=== PATIENT | male | born 1990 | race Caucasian/White ===

== ENCOUNTER 2016-11-11 14:24 | Inpatient (IN) | payer BC ==
[2016-11-11 15:01] LABS: % IMMATURE GRANULYOCYTES 0.2 % (0.0-1.1); ABSOLUTE IMMATURE GRANULOCYTES 0.01 10^3/uL (0.00-0.10); ADD DIFF? NO; ADD MORPH? NO; ADD SCAN? NO; ATYPICAL LYMPHOCYTE FLAG 0 (0-99); FRAGMENT RBC FLAG 0 (0-99); HEMATOCRIT 44.7 % (40.0-51.0); HEMOGLOBIN 15.8 g/dL (13.7-17.5); LEFT SHIFT FLG 0 (0-99); LIPEMIA HEMOLYSIS FLAG 90 (0-99); MEAN CELL HEMOGLOBIN 33.7 pg (27.9-34.1); MEAN CELL HEMOGLOBIN CONCENTR. 35.3 g/dL (32.4-36.7); MEAN CELL VOLUME 95.3 fL (81.5-99.8); MEAN PLATELET VOLUME 10.4 fL (8.7-11.7); PLATELET CLUMPS FLAG 0 (0-99); PLATELET COUNT 202 10^3/uL (150-400); RED BLOOD CELL COUNT 4.69 10^6/uL (4.40-6.38); RED CELL DISTRIBUTION WIDTH 12.2 % (11.5-15.2)
--- NOTE | 2016-11-11 15:11 | EDPHY ---
Mental Health General Previous Psychiatric History: substance abuse, depression Smoking Status: Current some day smoker Time Patient Placed on Detainer: 15:05 Time Medically Cleared for Psychiatric Evaluation: 15:49 Time of Transfer of Care: 17:[address]:: Aracelis Course: patient remained stable over course of my shift <Ebony Smith - Last Filed: 11/11/16 17:02> <Briana Hsu - Last Filed: 11/12/16 00:15> Course: patient remained stable over course of my shift, awaiting transfer to inpatient facility (The patient has been accepted at [address] [place] [address] Blackwood and will be transferred there this morning.) <Chani Horvath - Last Filed: 11/12/16 06:51> Narrative: CHIEF COMPLAINT: suicidal ideation HISTORY OF PRESENT ILLNESS: 26-year-old male presents emergency department voluntarily for suicidal ideation. Patient reports history of depression and substance abuse. He states that he has been very depressed since his father a few years ago. He has been to rehab a few times. Patient states he is staying at the [facility] right now. Patient reports suicidal thoughts over the last 5 days with plans to overdose or jump in front of a bus. Patient states Tuesday evening which is 4 days ago he took several Klonopin in hopes to not wake up. Patient denies previous suicide attempt. He denies drug or alcohol use. Patient denies homicidal ideation, auditory or visual hallucinations. REVIEW OF SYSTEMS: A comprehensive 10 point review of systems is otherwise negative aside from elements mentioned in the history of present illness. Physical Exam Gen: Alert and Oriented, NAD HEENT: PERRL, moist mucous membranes NECK: no meningismus CV: regular rate and regular rhythm PULM: CTAB, no wheezes ABDOMEN: soft, non tender to palpation, BS present BACK: No CVA tenderness NEURO: Neurologically grossly intact EXTREMITIES: normal appearing SKIN: no rash or break in skin on exposed skin PSYCH: Flat affect, reports suicidal ideation, denies homicidal ideation, auditory or visual hallucinations. (Ebony Smith) I assumed care of this patient at 9:00 p.m.. He has been cooperative while under my care. His evening medications have been ordered. He has undergone a psychiatric evaluation and inpatient psychiatric placement is being sought. His care is transferred to Dr. Horvath at midnight. (Briana Hsu) Medical Decision Makin-patient medically cleared and awaiting mental health evaluation. Report passed on to Dr. Hsu at the end of my shift pending evaluation. (Ebony Smith) - Objective Vital Signs: Initial Vital Signs Temperature (C) 36.9 C 11/11/16 14:28 Heart Rate 69 11/11/16 14:28 Respiratory Rate 14 11/11/16 14:28 Blood Pressure 130/75 H 11/11/16 14:28 O2 Sat (%) 99 11/11/16 14:28 O2 Delivery Mode Room Air Allergies/Adverse Reactions: No Known Allergies Allergy (Verified 11/11/16 14:28) Home Medications: Medication Instructions Recorded Clonidine 09/06/16 GABAPENTIN 09/06/16 LaMICtal 09/06/16 Remeron 09/06/16 Hydrocodone/APAP 5/325 [Kewadin 1 - 2 each PO Q4 PRN #14 tab 09/13/16 5/325] Medications Given: Discontinued Medications Gabapentin (Neurontin) 1,200 mg PO EDNOW ONE Stop: 11/11/16 23:40 Last Admin: 11/11/16 23:50 Dose: 1,200 mg Lamotrigine (Lamictal) 400 mg PO EDNOW ONE Stop: 11/11/16 23:43 Last Admin: 11/12/16 00:36 Dose: 400 mg Mirtazapine (Remeron) 30 mg PO EDNOW ONE Stop: 11/11/16 23:43 Last Admin: 11/12/16 00:36 Dose: 30 mg Nicotine Polacrilex (Nicorette) 2 mg B ONCE ONE Stop: 11/11/16 18:02 Last Admin: 11/11/16 18:22 Dose: 2 mg Quetiapine Fumarate (Seroquel) 50 mg PO ONCE ONE Stop: 11/11/16 23:45 Last Admin: 11/12/16 00:36 Dose: 50 mg Laboratory Results: Laboratory Results 11/11/16 14:14 11/11/16 14:14 Departure <Ebony Smith - Last Filed: 11/11/16 17:02> <Briana Hsu - Last Filed: 11/12/16 00:15> <Chani Horvath - Last Filed: 11/12/16 06:51> - Departure Clinical Impression: Severe major depression Condition: Fair Referrals: NONE *PRIMARY CARE P,. [Primary Care Provider] - As per Instructions
[2016-11-11 15:16] LABS: ANION GAP 13 mEq/L (8-16); CALCIUM 9.5 mg/dL (8.5-10.4); CARBON DIOXIDE 28 mEq/l (22-31); CHLORIDE 106 mEq/L (97-110); CREATININE 0.8 mg/dL (0.7-1.3); ETHANOL SERUM < 10 mg/dL (0-10); GLOMERULAR FILTRATION RATE > 60; GLUCOSE 103 mg/dL (70-100); POTASSIUM 3.7 mEq/L (3.5-5.2); SALICYLATE < 1.0 mg/dL (2.0-20.0); SODIUM 147 mEq/L (134-144)
[2016-11-11] MEDS ORDERED: NICOTINE POLACRILEX 2 MG GUM B ONE (18:01)
[2016-11-11] MEDS ORDERED: GABAPENTIN 300 MG CAP PO ONE (23:39)
[2016-11-11] MEDS ORDERED: lamoTRIgine 100 MG TAB PO ONE (23:42)
[2016-11-11] MEDS ORDERED: MIRTAZAPINE 30 MG TAB PO ONE (23:42)
[2016-11-11] MEDS ORDERED: QUEtiapine FUMARATE 50 MG TAB PO ONE (23:44)
[2016-11-12] MEDS ORDERED: QUEtiapine FUMARATE 50 MG TAB PO ONE (07:38)
[2016-11-12] MEDS ORDERED: GABAPENTIN 400 MG CAP PO ONE (07:38)
[2016-11-12] MEDS ORDERED: GABAPENTIN 300 MG CAP PO ONE (13:03)
[2016-11-12] MEDS ORDERED: MAGNESIUM HYDROXIDE 30 ML UDCUP PO PRN (17:02)
[2016-11-12] MEDS ORDERED: LORazepam 0.5 MG TAB PO PRN (17:02)
[2016-11-12] MEDS ORDERED: ACETAMINOPHEN 325 MG TAB PO PRN (17:02)
[2016-11-12] MEDS ORDERED: MAG HYDROX/AL HYDROX/SIMETH 30 ML UDCUP PO PRN (17:03)
[2016-11-12] MEDS: NICOTINE POLACRILEX 2 MG GUM B PRN (17:54)
[2016-11-12] MEDS: hydrOXYzine HCL 25 MG TAB PO PRN ×2 (19:03→22:06)
[2016-11-12] MEDS: GABAPENTIN 400 MG CAP PO SCH (22:07)
[2016-11-12] MEDS: QUEtiapine FUMARATE 50 MG TAB PO SCH (22:07)
--- NOTE | 2016-11-13 07:26 | PDGENHP ---
History and Physical - History of Present Illness 26 yo male with h/o bipolar disorder admitted from ED with suiciality. He has h /o depression and has been more depressed since his father a few years ago. He moved here from [place] and has been staying at a sober living facility, but considers himself homeless at this time. He gives a h/o PUD and take Prilosec daily. He does endorse some epigastric discomfort, no N/V/D. No fevers/chills. No CP or SOB. He reported suicidal thoughts to ED and took several Klonopin the other night hoping he wouldn't wake up. He is admitted to behavioral health for psychiatric stabilization. He feels safe here. History Information - Allergies/Home Medication List Allergies/Adverse Reactions: No Known Allergies Allergy (Verified 11/11/16 14:28) Home Medications: Clonidine 09/06/16 [Last Taken Unknown] GABAPENTIN 09/06/16 [Last Taken Unknown] LaMICtal 09/06/16 [Last Taken Unknown] Remeron 09/06/16 [Last Taken Unknown] I have personally reviewed and updated: family history, medical history, social history, surgical history - Past Medical History GERD - Surgical History Reports: no pertinent surgical hx - Family History Additional family history: mom had bipolar - Social History Smoking Status: Light smoker Drug Use: Marijuana Review of Systems ROS: 10pt was reviewed & negative except for what was stated in HPI & below Physical Exam Temp Pulse Resp BP Pulse Ox 36.7 C 55 L 14 114/71 96 11/13/16 06:00 11/13/16 06:00 11/13/16 06:00 11/13/16 06:00 11/13/16 06:00 Constitutional: no apparent distress Eyes: PERRL Ears, Nose, Mouth, Throat: moist mucous membranes Cardiovascular: regular rate and rhythym Respiratory: no respiratory distress, clear to auscultation Gastrointestinal: normoactive bowel sounds, soft, non-tender abdomen Skin: warm Neurologic: AAOx3 Psychiatric: interacting appropriately Lab Data & Imaging Review 11/11/16 14:14 11/11/16 14:14 WBC 5.24 10^3/uL (3.80-9.50) 11/11/16 14:14 RBC 4.69 10^6/uL (4.40-6.38) 11/11/16 14:14 Hgb 15.8 g/dL (13.7-17.5) 11/11/16 14:14 Hct 44.7 % (40.0-51.0) 11/11/16 14:14 MCV 95.3 fL (81.5-99.8) 11/11/16 14:14 MCH 33.7 pg (27.9-34.1) 11/11/16 14:14 MCHC 35.3 g/dL (32.4-36.7) 11/11/16 14:14 RDW 12.2 % (11.5-15.2) 11/11/16 14:14 Plt Count 202 10^3/uL (150-400) 11/11/16 14:14 MPV 10.4 fL (8.7-11.7) 11/11/16 14:14 Neut % (Auto) 71.5 % (39.3-74.2) 11/11/16 14:14 Lymph % (Auto) 19.3 % (15.0-45.0) 11/11/16 14:14 Lander % (Auto) 7.8 % (4.5-13.0) 11/11/16 14:14 Eos % (Auto) 0.4 % (0.6-7.6) L 11/11/16 14:14 Baso % (Auto) 0.8 % (0.3-1.7) 11/11/16 14:14 Nucleat RBC Rel Count 0.0 % (0.0-0.2) 11/11/16 14:14 Absolute Neuts (auto) 3.75 10^3/uL (1.70-6.50) 11/11/16 14:14 Absolute Lymphs (auto) 1.01 10^3/uL (1.00-3.00) 11/11/16 14:14 Absolute Monos (auto) 0.41 10^3/uL (0.30-0.80) 11/11/16 14:14 Absolute Eos (auto) 0.02 10^3/uL (0.03-0.40) L 11/11/16 14:14 Absolute Basos (auto) 0.04 10^3/uL (0.02-0.10) 11/11/16 14:14 Absolute Nucleated RBC 0.00 10^3/uL (0-0.01) 11/11/16 14:14 Immature Gran % 0.2 % (0.0-1.1) 11/11/16 14:14 Immature Gran # 0.01 10^3/uL (0.00-0.10) 11/11/16 14:14 Sodium 147 mEq/L (134-144) H 11/11/16 14:14 Potassium 3.7 mEq/L (3.5-5.2) 11/11/16 14:14 Chloride 106 mEq/L (97-110) 11/11/16 14:14 Carbon Dioxide 28 mEq/l (22-31) 11/11/16 14:14 Anion Gap 13 mEq/L (8-16) 11/11/16 14:14 BUN 10 mg/dL (7-23) 11/11/16 14:14 Creatinine 0.8 mg/dL (0.7-1.3) 11/11/16 14:14 Estimated GFR > 60 11/11/16 14:14 Glucose 103 mg/dL (70-100) H 11/11/16 14:14 Calcium 9.5 mg/dL (8.5-10.4) 11/11/16 14:14 Salicylates < 1.0 mg/dL (2.0-20.0) L 11/11/16 14:14 Urine Opiates Screen NEGATIVE (NEGATIVE) 11/11/16 15:15 Acetaminophen < 10 mcg/mL (10.0-30.0) L 11/11/16 14:14 Urine Barbiturates NEGATIVE (NEGATIVE) 11/11/16 15:15 Ur Phencyclidine Scrn NEGATIVE (NEGATIVE) 11/11/16 15:15 Ur Amphetamine Screen NEGATIVE (NEGATIVE) 11/11/16 15:15 U Benzodiazepines Scrn NEGATIVE (NEGATIVE) 11/11/16 15:15 Urine Cocaine Screen NEGATIVE (NEGATIVE) 11/11/16 15:15 U Marijuana (THC) Screen NON-NEGATIVE (NEGATIVE) H 11/11/16 15:15 Ethyl Alcohol < 10 mg/dL (0-10) 11/11/16 14:14 Assessment & Plan Assessment: Severe major depression (Acute) vs Bipolar disorder Substance abuse Peptic ulcer Pt continues to reports suicidal thoughts, med management per psych. UDS positive for marijuana, o/w negative. Will add Protonix for his PUD, he usually takes Prilosec.
[2016-11-13] MEDS: QUEtiapine FUMARATE 50 MG TAB PO SCH ×2 (08:50→21:35)
[2016-11-13] MEDS: PANTOPRAZOLE SODIUM 40 MG TAB PO SCH (08:51)
[2016-11-13] MEDS: GABAPENTIN 400 MG CAP PO SCH ×3 (08:51→21:35)
[2016-11-13] MEDS: MIRTAZAPINE 15 MG TAB PO SCH (08:51)
[2016-11-13] MEDS: NICOTINE POLACRILEX 2 MG GUM B PRN ×4 (08:51→19:20)
[2016-11-13] MEDS: lamoTRIgine 100 MG TAB PO SCH (08:52)
[2016-11-13] MEDS: hydrOXYzine HCL 25 MG TAB PO PRN (21:35)
[2016-11-14 06:45] VITALS: RESP 12
[2016-11-14] MEDS: QUEtiapine FUMARATE 50 MG TAB PO SCH (07:44)
[2016-11-14] MEDS: PANTOPRAZOLE SODIUM 40 MG TAB PO SCH (07:44)
[2016-11-14] MEDS: GABAPENTIN 400 MG CAP PO SCH ×3 (07:45→21:20)
[2016-11-14] MEDS: MIRTAZAPINE 15 MG TAB PO SCH (07:45)
[2016-11-14] MEDS: lamoTRIgine 100 MG TAB PO SCH (07:45)
[2016-11-14] MEDS: NICOTINE POLACRILEX 2 MG GUM B PRN ×3 (07:46→17:58)
--- NOTE | 2016-11-14 12:35 | SOAPPROG ---
SOAP Progress Note Assessment/Plan: Assessment: 26 yo CM presented vol to ED c/o SI and recent OD on Rx klonopin and ambien with THC use over 2 day period (which he filled from refills avail from psychiatrist in [place]) last week after leaving [facility]. States he'd been depressed for 2yr after father of brain tumor, long hx of subst use but has been in/out of diff rehab facilities in different states over past 6 mo. Unemployed and supported entirely financially by his mother, seems family may be setting limits on him. Denied hx of suicide attempts until presently. Does not want to return to rehab b/c feels it is not conducive for mental health treatment. Reports acute SI last week related to conflict with family. Told ED he continues with SI and thoughts to overdose or jump in front of a bus. Denied psychotic sxs, no AH/VH. denied any HI. Was placed on M-1. Plan: admitted to [facility]. restarted on outpt meds. safety precautions. dictated admission note to follow. Objective: Vital Signs Temp Pulse Resp BP Pulse Ox 36.9 C 80 12 117/57 L 97 11/14/16 06:00 11/14/16 06:00 11/14/16 06:00 11/14/16 06:00 11/14/16 06:00 - Time Spent With Patient Time Spent With Patient: 75min - Pending Discharge Pending Discharge Within 24 Hours: No Pending Discharge Within 48 Hours: No ICD10 Worksheet Patient Problems: Problems Problem Status Diagnosed Severe major depression Acute
--- NOTE | 2016-11-14 12:36 | SOAPPROG ---
SOAP Progress Note Assessment/Plan: Assessment: 26 yo CM presented vol to ED c/o SI and recent OD on Rx klonopin and ambien with THC use over 2 day period (which he filled from refills avail from psychiatrist in [place]) last week after leaving [facility]. States he'd been depressed for 2yr after father of brain tumor, long hx of subst use but has been in/out of diff rehab facilities in different states over past 6 mo. Unemployed and supported entirely financially by his mother, seems family may be setting limits on him. Denied hx of suicide attempts until presently. Does not want to return to rehab b/c feels it is not conducive for mental health treatment. Reports acute SI last week related to conflict with family. Told ED he continues with SI and thoughts to overdose or jump in front of a bus. Denied psychotic sxs, no AH/VH. denied any HI. Was placed on M-1. 11/14/16 11:43 pt reports not having slept well last night. feels groups are "mundane" here. trying to contact family or friends for $ today. Got into argument with a sister , and generally doesn't get along with her or 2 of 3 siblings, but only calls her for $. 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 Hasn' t worked there before b/c "didn't want to" at the time. Now feels he needs to focus on achieving financial independence from family, as he feels manipulated by mother/sibs who apparently threaten removal of $ support if not in drug treatment. Expressed frustration that his "drunk brother" (recovering EtOH) is allowed to stay at his mother's house "but I get sent away". [facility] mother promised to call him this AM but hasn't, and isn't happy about this. "she was going to help me" with next step "after I made it clear I was NOT going to return to [facility]" facility, c/o of this not being helpful for addressing his mental health issues/depression, "many there are out of intermediate ", and facility not very nice. Reluctant to sign DAVID's for mother or other family, but eventually agreed with stipulation to not discuss his care but only as related to d/c planning. States he also has option to live with sister Jenae in but doesn't want mother to know she offered. Sis can't afford to buy him ticket to return, and mother "closed down my account". Does not want to stay in [place] for treatment, wants to return to and f/u with his outpt psychiatrist there. calm, cooperative, good eye contact, casually dressed, restricted affect, mood "not great", denied any AH/VH or other psychotic sxs. Denied any SI or HI. externalizing, poor insight into his subst use. expresses future-oriented thinking. states likes Lamictal in AM b/c feels "more focused", also would like to take Remeron in AM reports had genetic testing in another rehab, and found SSRIs not beneficial psychological testing indicated anxiety d/o which could seem like bipolar 2, and question ADHD per pt. PLAN: -cont current meds Lamictal 400mg, Gabap 1200mg tid, remeron 30mg -made phone call to [facility] locally- Verified pt filled 2 Rx on 11/08, klon and ambien. Still with 4 refills remaining on Klonopin 0.5mg qd, and Ambien 10mg # [address] Licona. DISCONTINUED refills as these are not part of current tx regimen, recent reported OD on these, and not indicated given his subst use hx. *PT HAS refills of Lamictal, Remeron and Gabapentin on hold at [facility] from Dr. Licona. Will not need at d/c. Also has Rx for Clonidine 0.1mg bid prn from a different prescriber avail for refill at [facility]. Did not d/c this, as pt does request restarting it while inpt here. could be option if indicated. -new here since admit- seroquel 50mg bid. will change to 100mg qhs. may reconsider continuation of this med in this pt with subst use, however does have clinical indication for bmd depr, although subst use and personality d/o seem also contributing -signed in Voluntary Objective: Vital Signs Temp Pulse Resp BP Pulse Ox 36.9 C 80 12 117/57 L 97 11/14/16 06:00 11/14/16 06:00 11/14/16 06:00 11/14/16 06:00 11/14/16 06:00 - Time Spent With Patient Time Spent With Patient: 25min - Pending Discharge Pending Discharge Within 24 Hours: No Pending Discharge Within 48 Hours: No ICD10 Worksheet Patient Problems: Problems Problem Status Diagnosed Severe major depression Acute
[2016-11-14] MEDS: hydrOXYzine HCL 25 MG TAB PO PRN ×3 (12:56→22:14)
[2016-11-14] MEDS: QUEtiapine FUMARATE 100 MG TAB PO SCH (19:29)
--- NOTE | 2016-11-15 03:48 | BAPA ---
[f rep st] ADMISSION PSYCHIATRIC ASSESSMENT DATE OF SERVICE: 11/13/2016 CHIEF COMPLAINT: "I [facility] a week and a half but got real depressed on M onday, packed up and left, got my Klonopin and Ambien refilled and took them" in a reported suicide a ttempt. HISTORY OF PRESENT ILLNESS: The patient is a 26-year-old unmarried male, who presented vol untarily to [facility] ED endorsing suicidal ideation with a plan to overdose or jump i n front of traffic. Patient stated he had recently taken several Klonopin in an attempt to kill hims elf, also Ambien. He reports feeling depressed for approximately 2 years since his father of a glioblastoma. The patient reported after leaving the [facility], he filled his prescripti ons for Klonopin and Ambien (which were prescribed by a psychiatrist from [place]), went to a hot el he found through [employer] and took 7 to 8 Klonopin. He reports taking some Ambien prior to this to "prepare for taking the Klonopin," awakened the next day, and took some more pills. He did admit that someone asked to buy his pills from him which he refused to sell. At some point, he also reported f lushing 4-5 pills down the toilet. He does not have much recall of these 1-2 days earlier this week. He did wake up Tuesday (11/10/2016). Apparently he had torn apart a bed frame in his altered ment al status and owes money to this [employer] where he stayed. "I don't think they will give me a good revi ew." After this event, he returned to [facility], told them what he did and states they took him t o the hospital for an evaluation. He also then called his mother. Patient reports no prior suicide attempt. He continues to endorse depressed mood approximately 6.5/10. 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 Appetite is good. Energy "up and down." Suicidal ideation did not occur un til recent past, relating stressor that his mother was not talking to him, 2 siblings also were not s peaking to him and the patient was upset about some recent family arguments. He reports that mother spent 1 month in [place] recently and paid for him to be in a treatment facility, at some point, lissy hassan texted her, saw that she read his text but did not respond to several of them. This also upset him , and resulted in him having suicidal ideation with recent attempt. The patient denied any psychotic symptoms. He denied current manic or hypomanic symptoms. However, states he was diagnosed with bipo lar type 2 at a rehabilitation facility recently. PAST PSYCHIATRIC HISTORY: No previous inpatient psychiatric treatment for rehabilitation/dual diagno sis programs since February 2016. He has been at [facility] in [place] for 5 weeks, then [facility] in [place], [place] for their 30 day program, more recently at [facility] in January and Apr, and a program called [facility] in [place], [place] in July 2016. He has been at [facility] for approximately 2 weeks. He does not want to return there, feeling this facility is not co nducive for mental health stability. Current psychiatrist is Dr. Scott Gore. Psychiatrist in [facility], Dr. Abel Licona. CURRENT PSYCHIATRIC MEDICATIONS: Lamictal 400 mg p.o. daily. Remeron 30 mg p.o. daily. Gabapentin 1200 mg p.o. three times daily. Seroquel 50 mg p.o. twice daily. PAST PSYCHIATRIC MEDICATIONS: The patient lists several including Lexapro, Klonopin, Risperdal, Lyri ca, also Xanax. Reports history of Concerta in 4th grade. He also has been on propranolol, clonidin e and hydroxyzine. SAFETY HISTORY: No previous suicide attempts until recently as noted in HPI. This was his 1st repor elba suicide attempt. No reported history of harm to others. ALLERGIES: No known drug allergies. SUBSTANCE USE HISTORY: He reports recent sobriety for 44 days until 11/08/2016 when he [facility] and relapsed on marijuana, also this same day he overdosed on some of his benzodiazepines. He r eports drug of choice was primarily marijuana, 1st use at age 19 and historically had used in spurts but over the past 2 years has used almost daily. He endorsed using Dabs in May. History of LSD, MDMA and mushroom use, last used MDMA 9 months ago, used LSD only once he reports. He was prescribed Concerta in 4th grade until 10th grade, then Adderall which he took from friends in college whenever he needed to write a paper. He denied any narcotic/pain medication use. Denied any IV drug use. A dmits benzo use usually as prescribed although has received Xanax from friends before. He used to dr ink in college but stopped at age 24. Urine drug screen positive for THC; otherwise negative. BAL w as 0 in the ED. He reports longus sobriety was approximately 45 days ending 11/08/2016. FAMILY PSYCHIATRIC/SUBSTANCE USE HISTORY: The patient reports mother has bipolar but was not aware o f any other family substance use history. 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 To [facility] staff he reports brother is a recovering alcoholic. PAST LEGAL HISTORY: Marijuana possession, 2 charges in 2010 and 2014, respectively, in [place]. DUI related to Seroquel use in May 2016, license is suspended presently for a few more months due to this. The patient reports he was with a Seroquel prescription at that time. DUI is currently in diversion. PAST MEDICAL HISTORY: Approximately 8 concussions with loss of consciousness, reports sustaining majority of concussions pl aying football and lacrosse, most recently July 2016. ADDITIONAL INFORMATION: The patient denied any herbs or over the counter pharmaceutical supplements. Drinks caffeine approximately 2 cups of coffee per day, has occasionally used 5 hour energy drink w hen working. Paternal grandmother and paternal grandfather may have had alcoholism history. Brother alcohol. The patient diagnosed with either ADD or attention deficit hyperactivity disorder, placed on Ritalin in 4th grade until 8th grade. SOCIAL HISTORY: The patient denied any physical, sexual or emotional childhood abuse. He is single and never . No children. Currently homeless outside of recent substance rehab program. Stat es most of his friends live in [place] where he grew up and went to college. Attended [employer] and has 13 hours left to complete his BA. 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 Ellis ntly unemployed, mother supporting him entirely. 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 Reports family relationships are strained especially with mother recently having r eceived a text on 11/12/2016 stating "text me when you get your stuff together." Mother lives in [facility], brother lives with mom. Father of a brain tumor 2 years ago. All siblings are older, ages 35, 33 and 29. Patient feels he was likely "an accident" since he is 26 years old. The patien jaylyn has a good friend in [place], and he is not quite sure where he would like to go if he does not return to [facility]. MENTAL STATUS EXAMINATION: On admission, the patient was calm and cooperative. Casually dressed. A ppears stated age with normal speech rate, low/normal volume. Mood was depressed. Affect was restri cted. Somewhat dysphoric. Thought processes were without delusions or hallucinations, no disorganiz ation noted. Seemed, however inconsistent with some history. He endorsed ongoing feelings of suicid al ideation which still come and go for brief moments but generally have been "going away." He denied any homicidal ideation, auditory or visual hallucinations. Alert and oriented x3. Insight was good . Fair judgment impaired. IMPRESSION: A 26-year-old, male with a history of reported attention deficit hyperactivity disorder during childhood, polysubstance use and more recently depression x2 years, over the past 5 months in an out of substance treatment programs entirely supported financially by his mother, report ing feeling depressed over the past 2 years since his father and due to apparent acute feelings of rejection by mother and family, the patient felt acutely suicidal and relapsed with marijuana use, his drug of choice, and began taking pills over the course of 2 days (benzodiazepine) in a reported suicide attempt. No previous suicide attempts; however, given his substance use history, also questi on some element of desire to get high after 45 days of sobriety. The patient does have several risk factors for suicide, however. He does report feeling that his drug use is to try and feel something because otherwise he feels depressed. History of numerous concussions may also contribute to effecti ve instability and self-reported "slower thinking." Oliverio reports a history of having received psy chological testing and was diagnosed with anxiety presenting like bipolar mood disorder while in [facility] [place]. Questionable attention deficit hyperactivity disorder. One and half months ago lissy hassan was diagnosed with bipolar type 2 in [place]. It is unclear due to lack of a significant period of sobriety as to what his actual diagnosis is, however, he consistently reports depression being pre dominant and was diagnosed with attention deficit hyperactivity disorder when young. Regarding any m anic/hypomanic symptoms, he only reports periods of feeling depressed, predominantly, then "good for a while" which consists of feeling happy, socializing with others and exercising. ADMISSION DIAGNOSES: Bipolar 2 disorder, depressed, severe, rule out major depressive disorder, depressed, severe, cannabi s use disorder, moderate. History of childhood attention deficit hyperactivity disorder. History of multiple concussions/traumatic brain injury per self report. Rule out unspecified personality disord er. Status post suicide attempt by overdose on benzodiazepines. PLAN: Resume recent medications including Lamictal 400 mg p.o. daily, Remeron 30 mg p.o. daily, khadar pentin 1200 mg p.o. three times daily and change Seroquel 50 mg p.o. twice daily to 100 mg p.o. at be dtime. No benzodiazepines due to history of substance use. We will offer hydroxyzine 25-50 mg p.r.n . Plan to contact [facility] to determine any outstanding benzodiazepine prescription refills and will cancel these due to safety concerns, and no indication. Outpatient psychiatrist in [facility], Dr. Abel Licona [phone]. We will request release of information from [facility] and the patient's reported as psychological testing results. States he also had genetic testing for psychiatric medication. Encouraged patient to plan on his next step, does not what to r eturn to [facility]. The patient considering returning to [place] to live with a friend's [facility], or live with his friend in [place], not sure what he wants to do yet. Placed on suicide preca utions as the patient continues with some suicidal ideation reported periodically. Routine by unit r estrictions, safety plan. Encourage group attendance and participation in unit activities. ESTIMATED LENGTH OF STAY: Three to five days. Continue on M1 hold. We will re-evaluate on November 14 for signing in as a voluntary patient. /[id number]/MODL
[2016-11-15 06:33] VITALS: BP 111/55; PULSE 48; TEMP 98.2; O2SAT 96
[2016-11-15] MEDS: GABAPENTIN 400 MG CAP PO SCH ×2 (08:18→14:49)
[2016-11-15] MEDS: QUEtiapine FUMARATE 100 MG TAB PO SCH (08:19)
[2016-11-15] MEDS: PANTOPRAZOLE SODIUM 40 MG TAB PO SCH (08:19)
[2016-11-15] MEDS: MIRTAZAPINE 15 MG TAB PO SCH (08:19)
[2016-11-15] MEDS: lamoTRIgine 100 MG TAB PO SCH (08:19)
== END 2016-11-15 15:00 | disposition home or self-care (01) | DRG 880 ==
LOC: BBEH 11-12 16:15
PROVIDERS: ADMIT Psychiatry & Neurology Psychiatry; ATTEND Psychiatry & Neurology Psychiatry
DX: R45.851 Suicidal ideations (principal); F31.4 Bipolar disorder, current episode depressed, severe, without psychotic features; F19.10 Other psychoactive substance abuse, uncomplicated; F17.210 Nicotine dependence, cigarettes, uncomplicated; F12.10 Cannabis abuse, uncomplicated; K27.9 Peptic ulcer, site unspecified, unspecified as acute or chronic, without hemorrhage or perforation; Z81.8 Family history of other mental and behavioral disorders
CPT/HCPCS: 80305; G0480